=== PATIENT | male | born 1950 | race Caucasian/White ===

== ENCOUNTER → 2020-02-19 13:04 | Outpatient (CLI) | payer MEDICARE, SELFPAY ==
--- NOTE | ~2020-02-19 | MR_ITS ---
EXAMINATION: MR ankle RT wo con DATE: 02/19/2020 14:02 INDICATION: Right foot and ankle pain TECHNIQUE: Magnetic resonance imaging (MRI) of the right ankle was performed without intravenous cont rast. Sequences included sagittal, coronal, and axial proton-density weighted fast spin echo without and with fat saturation. COMPARISON: None. FINDINGS: Medial ankle ligaments: Deep and superficial deltoid ligaments as well as the spring ligament are normal. Lateral ankle ligaments: The anterior and posterior inferior tibiofibular ligaments are normal. The anterior talofibular, calc aneofibular and posterior talofibular ligaments are normal. Tendons: Achilles tendon is normal. Prominent fluid extending along the peroneal tendon sheath consistent with moderate tenosynovitis. The peroneus brevis brevis tendon is normal. There is mild thickening and in creased intrasubstance signal of the peroneus longus tendon consistent with mild tendinopathy without discrete tear. The tibialis anterior and extensor hallucis longus and extensor digitorum longus tend ons are normal. The tibialis posterior, flexor digitorum longus and flexor hallucis longus tendons ar e normal. Plantar fascia: Moderate-sized plantar calcaneal spur. There is mild thickening and mild increased signal at the prox imal plantar aponeurosis with mild edema in the underlying plantar fat pad consistent with mild acute on chronic plantar fasciitis. Bones/other: Bone alignment is normal. No fracture or pathologic marrow replacing process. Joint spaces appear nor mal. There is an erosion along the inferior margin of the peroneal tubercle along the lateral calcane us with prominent underlying marrow edema. There is thickening of the inferior peroneal retinaculum a nd mild edema in the immediately surrounding subcutaneous fat. Fluid: Physiologic amount fluid in the joint spaces. No abnormal fluid collections aside from the previous n oted peroneal tenosynovitis. IMPRESSION: 1. Cortical erosion with prominent underlying marrow edema centered at the inferior aspect of the per adame tubercle likely secondary to moderate peroneal tenosynovitis and mild tendinopathy of the peron eus longus tendon. 2. Mild acute on chronic plantar fasciitis. Reviewed, dictated and finalized at location B. IMPRESSION: 1. Cortical erosion with prominent underlying marrow edema centered at the infe rior aspect of the peroneal tubercle likely secondary to moderate peroneal teno synovitis and mild tendinopathy of the peroneus longus tendon. 2. Mild acute on chronic plantar fasciitis.
== END ==
PROVIDERS: Visit Provider Podiatrist Foot & Ankle Surgery
DX: M25.571 Pain in right ankle and joints of right foot (principal); M13.871 Other specified arthritis, right ankle and foot; M72.2 Plantar fascial fibromatosis
CPT/HCPCS: 73721

== ENCOUNTER 2020-05-16 11:20 | Emergency (ER) | payer MEDICARE, SELFPAY ==
--- NOTE | ~2020-05-16 | CT_ITS ---
EXAMINATION: CT abdomen pelvis wo con DATE: 05/16/2020 12:18 INDICATION: Right flank pain TECHNIQUE: Computed tomography (CT) of the abdomen and pelvis was performed without intravenous contr ast. The dose-length product (DLP) was 254.63 mGy-cm. Automated exposure control and iterative recons truction technique were employed. COMPARISON: None FINDINGS: The lung bases are clear. The heart size is normal. The liver, spleen, pancreas, gallbladde r, and adrenal glands are normal. There is a 3 mm stone near the right ureterovesicular junction whic h appears to be within the bladder. There is mild right hydroureteronephrosis. Nonobstructing stones of the right kidney measure up to 7 mm. The left kidney is unremarkable. No pathologically enlarged a bdominal or pelvic lymph nodes are identified. There is no free intraperitoneal gas or evidence of oli wel obstruction. Colonic diverticulosis is present without evidence of diverticulitis. The appendix i s normal. There are bilateral L5 pars defects with grade 1 anterolisthesis of L5 on S1. IMPRESSION: 1. Mild right hydroureteronephrosis with 3 mm stone in the bladder near the right ureterovesicular ju nction, likely recently passed. 2. Right nephrolithiasis. Reviewed, dictated and finalized at location A. ESTATE LOAN PROCESSOR IMPRESSION: 1. Mild right hydroureteronephrosis with 3 mm stone in the bladder near the rig ht ureterovesicular junction, likely recently passed. 2. Right nephrolithiasis.
[2020-05-16 11:27] VITALS: BP 157/91; PULSE 66; RESP 15; TEMP 36.7; O2SAT 100
--- NOTE | 2020-05-16 11:48 | ED.ABDPAIN ---
HPI - Abdominal Pain General Chief Complaint: Abdominal Pain Stated Complaint: RIGHT FLANK PAIN Time Seen by Provider: 05/16/20 11:39 History of Present Illness HPI narrative: 69 yo male w/ h/o kidney stone presents to the ED with flank pain. He reports that he first noticed some discomfort in the right low back yesterday. He thought that he strained a muscle in rehab. This morning the pain has been significantly worse. This was associated with an episode of nausea. He believes this feels similar to a kidney stone he had in the distant past. He also reports having to strain when urinating and possible incomplete emptying of his bladder. Related Data Home Medications Medication Instructions Recorded Confirmed allopurinol 05/16/20 alprazolam 05/16/20 atorvastatin 05/16/20 eszopiclone mg 05/16/20 losartan 05/16/20 omeprazole 05/16/20 testosterone cypionate mg 05/16/20 tramadol mg 05/16/20 05/16/20 Allergies Allergy/AdvReac Type Severity Reaction Status Date / Time No Known Allergies Allergy Verified 05/16/20 11:43 Review of Systems Review of Systems: All systems reviewed & are unremarkable except as noted in HPI and below Constitutional: Constitutional: Denies chills and Denies fever(s) Cardiovascular: Cardiovascular: Denies chest pain Respiratory: Respiratory: Denies dyspnea Gastrointestinal: Gastrointestinal: Reports nausea Genitourinary: Genitourinary: Denies hematuria, Reports dysuria and Reports urinary frequency Musculoskeletal: Musculoskeletal: Reports back pain Neurologic: Denies confusion, Denies dizziness and Denies weakness [facility] Past Medical History Medical History (Updated 05/16/20 @ 12:59 by Jorge Ellis MD) HTN (hypertension) Hyperuricemia Kidney stone Social History Social History (Updated 05/16/20 @ 12:30 by Jorge Ellis MD) Smoking status: Never smoker Gender identity (if verbalized by the patient): Male Exam Const: General: healthy appearing, no acute distress and alert Orientation/consciousness: patient oriented x3 HENMT: Head: normal to inspection Resp: Effort & Inspection: normal respiratory effort Auscultation: clear to auscultation bilaterally Cardio: Rate: regular rate Rhythm: regular rhythm GI: GI Palp: Yes Soft to palpation and No Tenderness to palpation present (GI) Skin: General skin exam: normal color Neuro: General: patient oriented x3, moves all extremities, no focal motor deficits and CN's II-XI intact bilaterally Speech: normal speech Extrem: General: normal to inspection Course Vital Signs Vital signs: Vital Signs Temperature 36.7 C 05/16/20 11:27 Pulse Rate 66 05/16/20 11:27 Respiratory Rate 15 05/16/20 11:27 Blood Pressure 157/91 H 05/16/20 11:27 Pulse Oximetry 100 05/16/20 11:27 Temperature 36.7 C 05/16/20 11:27 Pulse Rate 60 05/16/20 14:04 Respiratory Rate 16 05/16/20 14:04 Blood Pressure 158/86 H 05/16/20 14:04 Pulse Oximetry 100 05/16/20 14:04 MDM - Abdominal Pain Differential Diagnosis Differential diagnosis: Likely acute appendicitis, calculus of kidney, diverticulitis and small bowel obstruction Medical Records Attestation: I reviewed the patient's medical records. Lab Data Attestation: I reviewed the patient's lab results. Result diagrams: 05/16/20 11:47 05/16/20 11:47 Labs: Lab Results 05/16/20 05/16/20 05/16/20 Range/Units 11:47 11:47 11:47 WBC 7.4 (4.5-10.0) K/mm3 RBC 4.87 (4.6-6.20) M/mm3 Hgb 15.1 (14.0-18.0) g/dL Hct 45.8 (42.0-52.0) % MCV 94.0 (80-100) fl MCH 31.0 (26-34) pg MCHC 33.0 (32-36) g/dl RDW 13.6 (11.5-14.5) % Plt Count 164 (150-375) k/mm3 MPV 11.0 H (7.4-10.4) fl Immature Gran % (Auto) 0.5 (0-0.5) % Neut % (Auto) 66.2 (45.5-73.1) % Lymph % (Auto) 22.2 (18.3-44.2) % [place] % (Auto) 6.5 (2.6-8.5) % Eos % (Auto) 4.2 (0-4.4) % Bas
[2020-05-16 11:54] LABS: Basophils Percent Auto 0.4 % (0.2-1.2); Eosinophils Absolute Auto 0.3 K/mm3 (0-0.3); Eosinophils Percent Auto 4.2 % (0-4.4); Hematocrit 45.8 % (42.0-52.0); Hemoglobin 15.1 g/dL (14.0-18.0); Immature Granulocyte Absolute 0.04 K/mm3 (0.00-0.031); Immature Granulocyte Percent A 0.5 % (0-0.5); Lymphocytes Absolute Auto 1.65 K/mm3 (0.9-3.2); Lymphocytes Percent Auto 22.2 % (18.3-44.2); Monocytes Absolute Auto 0.5 K/mm3 (0.1-0.6); Monocytes Percent Auto 6.5 % (2.6-8.5); Neutrophils Absolute Auto 4.9 K/mm3 (1.3-6.7); Neutrophils Percent Auto 66.2 % (45.5-73.1); Platelet Count Result 164 k/mm3 (150-375); Red Blood Count 4.87 M/mm3 (4.6-6.20); Red Cell Distribution Width 13.6 % (11.5-14.5); White Blood Count 7.4 K/mm3 (4.5-10.0)
[2020-05-16 11:56] LABS: Add Urine Microscopic? NO; Appearance Urine Clear (Clear); Bilirubin Urine Negative (Negative); Blood Urine Negative (Negative); Color Urine Yellow (Yellow); Glucose Urine UA Negative (Negative); Ketones Urine Negative (Negative); Leukocyte Esterase Ur Negative LEU/UL (Negative); Nitrate Urine Negative (Negative); Protein Urine Negative (Negative); Specific Grav Ur 1.021 (1.001-1.035); Urobilinogen Urine Negative mg/dL (<2.0)
[2020-05-16 12:06] LABS: Alanine Aminotransferase 36 U/L (4-50); Albumin Level 4.4 g/dL (3.5-5.1); Alkaline Phosphatase 90 U/L (38-126); Anion Gap 8 mmol/L (8-16); Aspartate Amino Transferase 27 U/L (17-59); Bilirubin,Total 0.6 mg/dL (0.2-1.3); Blood Urea Nitrogen 19 mg/dL (9-20); Calcium 9.4 mg/dL (8.4-10.2); Carbon Dioxide 25 mmol/L (22-30); Chloride 105 mmol/L (98-107); Estimated CRCL calculation 52 ml/min; Estimated Glomerular Filt Rate 60; Glucose 176 mg/dL (75-110); Lipase 54 U/L (23-300); Potassium 4.2 mmol/L (3.4-5.0); Sodium 138 mmol/L (137-145)
[2020-05-16] MEDS: fentaNYL CITRATE INJ (*CRX) 100 MCG/2 ML VIAL 50 MCG IV PUSH (12:13)
[2020-05-16] MEDS: KETOROLAC 30 MG/ML VIAL (*BKC) IV PUSH (13:09)
[2020-05-16 14:04] VITALS: BP 158/86; PULSE 60; RESP 16; O2SAT 100
== END 2020-05-16 14:40 | disposition home or self-care (01) ==
PROVIDERS: Emergency Provider Emergency Medicine; PCP Internal Medicine
DX: N13.2 Hydronephrosis with renal and ureteral calculous obstruction (principal); I10 Essential (primary) hypertension; Z87.442 Personal history of urinary calculi
CPT/HCPCS: 36415; 74176; 80053; 81003; 83690; 85025; 96374; 96375; 99284; J1885; J3010

== ENCOUNTER → 2020-06-14 10:20 | Outpatient (CLI) | payer MEDICARE, SELFPAY ==
--- NOTE | ~2020-06-14 | US_ITS ---
EXAMINATION: US renal BI DATE: 06/14/2020 10:43 INDICATION: Nephrolithiasis TECHNIQUE: Multiple ultrasound grayscale images of the kidneys were obtained. COMPARISON: None. FINDINGS: The right kidney measures 8.9 x 5.1 x 5.6 although length appears underestimated and measures 11.6 cm in length on prior CT The left kidney measures 12.0 x 5.4 x 4.4 cm. There is a normal variant dromed marc hump at the interpolar region of the left kidney. The kidneys demonstrate normal echogenicity. Th ere is no hydronephrosis in either kidney. No shadowing renal stones identified. The bladder is deco mpressed which limits evaluation.. IMPRESSION: 1. Normal kidneys without hydronephrosis. Small stones previously seen in the right kidney on CT are not visualized by ultrasound which could be either due to their small size or interval passage. Reviewed, dictated and finalized at location A. RAPHIC INFORMATION SYSTEM SURVEYOR IMPRESSION: 1. Normal kidneys without hydronephrosis. Small stones previously seen in the right kidney on CT are not visualized by ultrasound which could be either due t o their small size or interval passage.
== END ==
PROVIDERS: PCP Internal Medicine
DX: N20.0 Calculus of kidney (principal)
CPT/HCPCS: 76775

== ENCOUNTER 2020-10-15 14:35 | Outpatient (CLI) | payer MEDICARE, SELFPAY ==
[2020-10-15 19:16] LABS: Prostate Specific Antigen 2.1 ng/mL (< OR = 4.0)
== END 2020-10-15 14:36 | disposition home or self-care (01) ==
PROVIDERS: PCP Internal Medicine; Visit Provider Internal Medicine
DX: Z12.5 Encounter for screening for malignant neoplasm of prostate (principal)
CPT/HCPCS: 36415; 84153; G0103

== ENCOUNTER → 2022-11-20 09:31 | Outpatient (CLI) | payer MEDICARE, SELFPAY ==
--- NOTE | ~2022-11-20 | XR_ITS ---
EXAMINATION: XR abdomen/kub 1V DATE: 11/20/2022 09:47 INDICATION: Personal history of urinary calculi. TECHNIQUE: A supine view of the abdomen on 2 radiographs was obtained. COMPARISON: CT abdomen and pelvis 05/16/2020 FINDINGS: There are no dilated loops of bowel. There is a 6 mm stone in right kidney. There are phleb oliths in the pelvis. IMPRESSION: 1. 6 mm stone in right kidney. Reviewed, dictated and finalized at location A.
== END ==
PROVIDERS: PCP Urology; Visit Provider Urology
DX: N20.0 Calculus of kidney (principal)
CPT/HCPCS: 74018

== ENCOUNTER 2022-12-20 09:19 | Outpatient (CLI) | payer MEDICARE, SELFPAY ==
--- NOTE | 2022-12-20 09:30 | ECG_ITS ---
Measurements Intervals [place] Rate: 75 P: 26 ID: [id number] QRS: -31 QRSD: 106 T: -10 QT: 371 QTc: 416 Interpretive Statements SINUS RHYTHM MARKED LEFT AXIS DEVIATION [QRS AXIS < -30] MODERATE VOLTAGE CRITERIA FOR LVH, CONSIDER NORMAL VARIANT [MEETS CRITERIA IN ONE OF: R(aVL), S(V1), R(V5), R(V5/V6)+S(V1)] ABNORMAL ECG NO PREVIOUS ECG AVAILABLE FOR COMPARISON Electronically Signed On 12-20-2022 12:13:19 CDT by Raudel Morataya M.D.
[2022-12-20 10:45] LABS: INR 1.2; Prothrombin Time 15.6 Seconds (11.1-14.7)
[2022-12-20 10:46] LABS: Partial Thromboplastin Time 44.1 SECONDS (22.3-36.8)
== END 2022-12-20 09:20 | disposition home or self-care (01) ==
LOC: ANHSURGERY 09:25
PROVIDERS: Visit Provider Urology
DX: Z01.818 Encounter for other preprocedural examination (principal); I10 Essential (primary) hypertension; N20.0 Calculus of kidney; R94.31 Abnormal electrocardiogram [ECG] [EKG]
CPT/HCPCS: 36415; 85610; 85730; 87086; 93005

== ENCOUNTER 2022-12-22 03:38 | Day surgery (SDC) | payer MEDICARE, SELFPAY ==
--- NOTE | 2022-12-15 08:35 | PC.NURSE ---
Report to the Outpatient Waiting Room, entrance under the green pavilion located off [facility], at time _0600 on date __12/22/22 . Planned Procedure Time: _0730 . Time changes happen often and if your time is changed the preop area will call you the afternoon before. - You and your visitor will be asked to self-screen and do not enter if you have any COVID symptoms. - A mask is optional within the hospital at this time. Patients may have clear liquids (water, carbonated beverages, clear teas, apple juice) until 3 hours prior to surgery with a maximum of 20 ounces. - No food from midnight until time of surgery - Infants may have breast milk until 4 hours before surgery, formula 6 hours prior to surgery. - Children will be allowed to drink immediately following surgery. If applicable, please bring a bottle or sippy cup to assist with drinking. Juice, water, soda, and popsicles are readily available. For infants on formula, please bring formula the day of surgery. Pacifiers are allowed. Take the following medications with a SIP of water the morning of surgery: ___NONE DO NOT STOP ANY OF YOUR OTHER PRESCRIPTION MEDICATIONS PRIOR TO SURGERY ?EXCEPT THE FOLLOWING Medications to discontinue per physician NONE Please no make-up, nail yoruba, hairspray, perfume, deodorant, or body powder the day of surgery. No jewelry (including any body piercings) or valuables the day of surgery, leave them at home. Please take a shower or bath the night before, or the morning of, surgery with an antibacterial soap. Wear comfortable, loose fitting clothing. Children are encouraged to wear pajamas. - Jewelry must be removed prior to entering the operating room. Rings and piercings that are not removed may be cut off. - The hospital will not accept responsibility for valuables. - Please leave all valuables, including medications, at home the day of surgery. If you are going home after surgery, a licensed log driver must drive you home. - NO public transportation without another adult if you receive anesthesia. - We recommend that an adult stay with you for 24 hours following discharge. - We also recommend that you do not drive, make important decision, drink alcoholic beverages, or take any drugs that were not prescribed by your health care provider for at least 24 hours after your discharge time. For Pediatric surgeries, we recommend two adults accompany the child home. Follow any additional instructions given to you from your surgeon. If you or anyone in your household have experienced Covid symptoms in the past week, please notify your surgeon or the nurse liaison at the phone number below for possible testing. Telephone instructions given to __PATIENT and asked if any additional questions and then verbalized understanding. Patient advised to call surgeon office or pre surgery nurse liaison [phone] if any additional questions.
[2022-12-15 08:47] VITALS: BMI 25.1
--- NOTE | 2022-12-21 09:58 | WPDANESEPPF ---
Anes - Initial Pre Proc Eval Procedure: Operation Date: 12/22/22 07:30 Proposed Procedures p Right Renal Extracorporeal Shock Wave Lithotripsy - Gabriel Calix MD Date/Time: 12/21/22 09:58 Surgeon: Gabriel Calix MD Pre Op Diagnosis: right renal stone Patient Data Age: 72 Gender: M Height: 1.78 m Weight: 79.4 kg Allergies Allergy/AdvReac Type Severity Reaction Status Date / Time No Known Allergies Allergy Verified 12/15/22 08:23 Home Medications Medication Instructions Recorded Confirmed Type allopurinol 300 mg tablet 300 mg PO DAILY 05/16/20 12/15/22 History alprazolam 1 mg tablet 1 mg PO PRN PRN Anxiety 05/16/20 12/15/22 History atorvastatin 10 mg tablet 10 mg PO DAILY 05/16/20 12/15/22 History losartan 50 mg tablet 50 mg PO DAILY 05/16/20 12/15/22 History omeprazole 20 mg capsule,delayed 40 mg PO DAILY 05/16/20 12/15/22 History release testosterone cypionate 200 mg/mL 200 mg IM MONTHLY 05/16/20 12/15/22 History intramuscular oil tramadol 50 mg tablet 50 mg PO PRN PRN Pain 05/16/20 12/15/22 History amitriptyline 10 mg tablet 20 mg PO HS HEADACHE 12/15/22 12/15/22 History calcium polycarbophil 625 mg 1,250 mg PO DAILY 12/15/22 12/15/22 History tablet (FiberCon) mirabegron 25 mg tablet,extended 25 mg PO DAILY 12/15/22 12/15/22 History release 24 hr (Myrbetriq) Patient hx anesthesia problems: none Family hx anesthesia problems: none Results Review: All pre-operative results and documents have been reviewed as part of the pre-operative evaluation. [facility] Past Medical History Medical History (Updated 12/21/22 @ 09:59 by Michael Lorenzo DO) GERD (gastroesophageal reflux disease) Gout HTN (hypertension) Hyperlipidemia Hyperuricemia Kidney stone JARAD (obstructive sleep apnea) CPAPg Social History Social History (Updated 05/16/20 @ 12:30 by Jorge Ellis MD) Smoking status: Never smoker Living arrangements: with family Gender identity (if verbalized by the patient): Male Spiritual care concerns: No Anes - Eval Final PreProcedure Day of Procedure 12/21/22 09:58 Patient weight: normal Heart: regular rate and rhythm Lungs: clear to auscultation and normal air movement Airway: Mallampati scale class II Neurological: alert and oriented Last oral intake: >/= 8 hours ASA classification: III Emergent: no Anesthetic plan: proceed Anesthesia type and monitoring: general GIVS and standard monitoring Results Review: All pre-operative results and documents have been reviewed as part of the pre-operative evaluation. Informed Consent: The patient's anesthetic plan and its attendant risks and benefits were discussed with the patient/family/POA. Questions were solicited and answers provided to the satisfaction of the patient/family/POA.
--- NOTE | ~2022-12-22 | XR_ITS ---
Supine and upright views of the abdomen Clinical history: Lithotripsy COMPARISON: 11/20/2022 Findings: Bowel gas pattern is nonspecific. No evidence for obstruction or free air. Stable right kenneth al stone present. Osseous structures are intact. Impression: Stable right renal stone. Reviewed, dictated and finalized at [facility]. Impression: Stable right renal stone.
[2022-12-22] MEDS: LACTATED RINGERS 1,000 ML 30 ML IV CONT (07:00)
[2022-12-22 07:02] LABS: Prothrombin Time 13.1 Seconds (11.1-14.7)
--- NOTE | 2022-12-22 07:20 | WPDHPUPDATE1 ---
History and Physical Update Update Date/Time: 12/22/22 07:20 History and Physical has been reviewed, including an updated exam of the patient. There are NO changes in the patient's condition. Risks, benefits, and alternatives have been discussed and questions answered. Patient agrees to proceed with procedure. Proceed with eswl right renal calculus
[2022-12-22 07:26] VITALS: BP 132/81; PULSE 90; RESP 14; TEMP 36.6; O2SAT 95
[2022-12-22] MEDS: ceFAZolin 2 GM/D5W 50 ML 2 GM/50 ML BAG IVPB (07:30)
--- NOTE | 2022-12-22 08:09 | W.PM.PROC2 ---
Procedure Note - Detailed Date of Procedure 12/22/22 Pre-op Diagnosis right renal stone Post-op Diagnosis Same Procedure Performed LITHOTRIPSY OF RIGHT RENAL CALCULUS Surgeon Gabriel Calix MD Anesthesia General Description of Procedure Patient is taken to the operative suite and correctly identified. Once anesthesia was obtained the stone was localized in both planes. Two thousand five hundred shocks were given to the stone. There appeared to be dispersion of the stone. Patient tolerated procedure well without complications and was taken recovery stable condition. This completes dictation please send a copy of this op note to my office Estimated Blood Loss 0 Drains No Packing No Pathology None sent Complications No immediate complications Condition Stable
[2022-12-22 08:21] VITALS: BP 134/86; PULSE 71; RESP 15; TEMP 36.1; O2SAT 99
[2022-12-22 08:35] VITALS: BP 131/71; PULSE 69; RESP 16; O2SAT 95
[2022-12-22 08:50] VITALS: BP 142/84; PULSE 59; RESP 14; O2SAT 96
[2022-12-22 08:55] VITALS: BP 145/86; PULSE 65; RESP 14
[2022-12-22 09:25] VITALS: BP 131/78; PULSE 60; RESP 14
== END 2022-12-22 09:45 | disposition home or self-care (01) ==
PROVIDERS: Visit Provider Urology
PROC: (CPT 50590; principal; 2022-12-22 07:30)
DX: N20.0 Calculus of kidney (principal); R31.0 Gross hematuria; I10 Essential (primary) hypertension; E78.5 Hyperlipidemia, unspecified; K21.9 Gastro-esophageal reflux disease without esophagitis; G47.33 Obstructive sleep apnea (adult) (pediatric); M10.9 Gout, unspecified
CPT/HCPCS: 50590; 36415; 74018; 85610; 85730; J0690; J3010; J7120

== ENCOUNTER 2023-01-04 10:25 | Outpatient (CLI) | payer MEDICARE, SELFPAY ==
--- NOTE | ~2023-01-04 | XR_ITS ---
XR abdomen/kub 1V 01/04/2023 10:44 INDICATION: Lithotripsy. TECHNIQUE: KUB COMPARISON: 12/22/2022 FINDINGS: Bowel gas pattern is normal. There is no evidence of free air, mass, organomegaly, ascites or obstruction. There are clustered stones in the right kidney which are obscured by bowel content. The bones appear intact. There are pelvic phleboliths. IMPRESSION: 1: Right nephrolithiasis. Reviewed, dictated and finalized at location L. IMPRESSION: 1: Right nephrolithiasis.
== END 2023-01-04 10:26 | disposition home or self-care (01) ==
LOC: ANHIMG 10:28
PROVIDERS: Visit Provider Urology
DX: N20.0 Calculus of kidney (principal)
CPT/HCPCS: 74018

== ENCOUNTER 2023-01-18 10:55 | Outpatient (CLI) | payer MEDICARE, SELFPAY ==
--- NOTE | ~2023-01-18 | XR_ITS ---
XR abdomen/kub 1V 01/18/2023 11:16 INDICATION: Nephrolithiasis TECHNIQUE: KUB COMPARISON: 01/04/2023 FINDINGS: Bowel gas pattern is normal. There is no evidence of free air, mass, organomegaly, ascites or obstruction. No abnormal calculi are seen. The bones appear intact. There are multiple pelvic p hleboliths. IMPRESSION: 1: No acute abdominal abnormality identified. Reviewed, dictated and finalized at location L.
== END 2023-01-18 10:56 | disposition home or self-care (01) ==
PROVIDERS: Visit Provider Urology
DX: N20.0 Calculus of kidney (principal)
CPT/HCPCS: 74018

== ENCOUNTER 2023-04-04 09:40 | Emergency (ER) | payer MEDICARE, SELFPAY ==
[2023-04-04 09:53] VITALS: BP 121/73; PULSE 95; RESP 16; TEMP 37.7; O2SAT 100
--- NOTE | 2023-04-04 10:22 | ED.URI ---
HPI - URI/Sore Throat General Chief Complaint: Upper Respiratory Infection Stated Complaint: COUGH/HEADACHE/BODY ACHES/SORE THROAT Time Seen by Provider: 04/04/23 10:00 Source: patient Mode of arrival: ambulatory Limitations: no limitations History of Present Illness HPI Narrative: Gabe is a 72-year-old male patient presenting to the clinic today with complaints of cough, headache, body aches, sore throat x4 days. Has had slight fever. No known exposure to anyone with COVID, flu, or strep. MD elicited complaint: cough, sore throat, nasal congestion and other (Headache) Related Data Home Medications Medication Instructions Recorded Confirmed allopurinol 300 mg tablet 300 mg PO DAILY 05/16/20 04/04/23 alprazolam 1 mg tablet 1 mg PO PRN PRN Anxiety 05/16/20 04/04/23 atorvastatin 10 mg tablet 10 mg PO DAILY 05/16/20 04/04/23 losartan 50 mg tablet 50 mg PO DAILY 05/16/20 04/04/23 omeprazole 20 mg capsule,delayed 40 mg PO DAILY 05/16/20 04/04/23 release testosterone cypionate 200 mg/mL 200 mg IM MONTHLY 05/16/20 04/04/23 intramuscular oil tramadol 50 mg tablet 50 mg PO PRN PRN Pain 05/16/20 04/04/23 amitriptyline 10 mg tablet 20 mg PO HS HEADACHE 12/15/22 04/04/23 calcium polycarbophil 625 mg 1,250 mg PO DAILY 12/15/22 04/04/23 tablet (FiberCon) mirabegron 25 mg tablet,extended 25 mg PO DAILY 12/15/22 04/04/23 release 24 hr (Myrbetriq) Allergies Allergy/AdvReac Type Severity Reaction Status Date / Time No Known Allergies Allergy Verified 04/04/23 10:19 Review of Systems Review of Systems: Pertinent positives per HPI. Patient denies any rash, visual changes, dizziness, shortness of breath, chest pain, palpitations, nausea, vomiting, diarrhea, constipation, abdominal pain, or any urinary issues. [facility] Past Medical History Medical History (Updated 04/04/23 @ 10:47 by Denilson Eid APRN) GERD (gastroesophageal reflux disease) Gout HTN (hypertension) Hyperlipidemia Hyperuricemia Kidney stone JARAD (obstructive sleep apnea) CPAPg Social History Social History (Updated 05/16/20 @ 12:30 by Jorge Ellis MD) Smoking status: Never smoker Living arrangements: with family Gender identity (if verbalized by the patient): Male Spiritual care concerns: No Comments At the time of my signature, I reviewed and agree with the nursing past medical, surgical, social, and family history. There is no relevant family history pertinent to the patient complaint. Exam Narrative: General: Well-developed, well nourished, in no apparent distress Head: Normocephalic, atraumatic Eyes: Pupils equally round and reactive to light bilaterally, EOM intact, sclera and conjunctive clear, no discharge, lids normal Ears: TMs intact and clear, ear canals clear, no drainage, grossly hearing normal. Nose: Nares patent, no discharge, no inflammation, no sinus tenderness. Mouth: Oral pharynx without lesions or masses, good dentition, MMM. Neck: Supple, trachea midline, no enlargement of anterior or posterior cervical nodes, no thyroid masses or goiter palpable. Cardio: Regular rate and rhythm, s1 and s2 normal, no murmur appreciated. Resp: Clear to auscultation bilaterally, no rhonchi, rales, wheezing or rubs Course Course Emergency Course: Portions of this record may have been created with voice recognition software. Level of Care: Express Care Visit Vital Signs Vital signs: Vital Signs Temperature 37.7 C H 04/04/23 09:53 Pulse Rate 95 04/04/23 09:53 Respiratory Rate 16 04/04/23 09:53 Blood Pressure 121/73 04/04/23 09:53 Pulse Oximetry 100 04/04/23 09:53 Temperature 37.7 C H 04/04/23 09:53 Pulse Rate 95 04/04/23 09:53 Respiratory Rate 16 04/04/23 09:53 Blood Pressure 121/73 04/04/23 09:53 Pulse Oximetry 100 04/04/23 09:53 Vital signs reviewed MDM - URI/Sore Throat MDM Narrative Medical decision making narrative: At the time of visit patient is
== END 2023-04-04 10:30 | disposition home or self-care (01) ==
PROVIDERS: Emergency Provider Nurse Practitioner Family
DX: J10.1 Influenza due to other identified influenza virus with other respiratory manifestations (principal); R05.1 Acute cough; K21.9 Gastro-esophageal reflux disease without esophagitis; M10.9 Gout, unspecified; I10 Essential (primary) hypertension; E78.5 Hyperlipidemia, unspecified; G47.33 Obstructive sleep apnea (adult) (pediatric)
CPT/HCPCS: 87804; 99213; G0463

== ENCOUNTER 2023-04-09 09:01 | Emergency (ER) | payer MEDICARE, SELFPAY ==
[2023-04-09 09:12] VITALS: BP 133/83; PULSE 95; RESP 16; TEMP 37.1; O2SAT 96
[2023-04-09 09:13] VITALS: BP 133/83; PULSE 95; RESP 16; TEMP 37.1; O2SAT 96
--- NOTE | 2023-04-09 09:21 | ED.URI ---
HPI - URI/Sore Throat General Chief Complaint: Upper Respiratory Infection Stated Complaint: Flu symptoms Time Seen by Provider: 04/09/23 09:24 Source: patient, RN notes reviewed and old records reviewed Mode of arrival: ambulatory Limitations: no limitations History of Present Illness HPI Narrative: 72-year-old male presents to [facility] with complaints of testing positive for Influenza A on the 02 of April with complaints of coughing productively and body aches continued. Patient reports no shortness of breath or any wheezing noted. Patient reports that he has been taking Mucinex, Claritin,Flonase, Ibuprofen, and Robitussin for his symptoms. Patient denies any nausea,vomiting or diarrhea, denies any sore throat or any ear pain, respiration even and nonlabored with no tachypnea noted, no retractions, SAO2 96% on room air.. MD elicited complaint: cough and other (body aches continue.) Pertinent past history: other (diagnosed with Influenza 1 week ago.) Onset (ago): week(s) (1) Consistency: constant Severity: mild Able to tolerate fluids by mouth: Yes Treatments prior to arrival: ibuprofen and other (Robitussin,Claritin,Flonase Mucinex) Related Data Home Medications Medication Instructions Recorded Confirmed allopurinol 300 mg tablet 300 mg PO DAILY 05/16/20 04/09/23 alprazolam 1 mg tablet 1 mg PO PRN PRN Anxiety 05/16/20 04/09/23 atorvastatin 10 mg tablet 10 mg PO DAILY 05/16/20 04/09/23 losartan 50 mg tablet 50 mg PO DAILY 05/16/20 04/09/23 omeprazole 20 mg capsule,delayed 40 mg PO DAILY 05/16/20 04/04/23 release testosterone cypionate 200 mg/mL 200 mg IM MONTHLY 05/16/20 04/04/23 intramuscular oil tramadol 50 mg tablet 50 mg PO PRN PRN Pain 05/16/20 04/04/23 amitriptyline 10 mg tablet 20 mg PO HS HEADACHE 12/15/22 04/09/23 calcium polycarbophil 625 mg 1,250 mg PO DAILY 12/15/22 04/09/23 tablet (FiberCon) mirabegron 25 mg tablet,extended 25 mg PO DAILY 12/15/22 04/09/23 release 24 hr (Myrbetriq) Allergies Allergy/AdvReac Type Severity Reaction Status Date / Time No Known Allergies Allergy Verified 04/09/23 09:13 Review of Systems Review of Systems: CONSTITUTIONAL:Reports malaise,no present chills, sweats, or fever. EYES: Denies visual changes, redness, or discharge. ENT: Reports rhinorrhea, congestion,no sinus pain, otalgia and sore throat. CARDIOVASCULAR: Denies chest pain, palpitations, or edema. RESPIRATORY: Reports cough.? Denies dyspnea. GASTROINTESTINAL: Denies abdominal pain, nausea, vomiting, diarrhea SKIN: Denies rash or itching. MUSCULOSKELETAL:Reports myalgia. NEUROLOGIC: Denies headache. All systems reviewed & are unremarkable except as noted in HPI and below PMFSH Past Medical History Medical History (Updated 04/10/23 @ 07:03 by Leonor Wood NP) GERD (gastroesophageal reflux disease) Gout HTN (hypertension) Hyperlipidemia Hyperuricemia Kidney stone JARAD (obstructive sleep apnea) CPAPg Surgical History Surgical History (Updated 04/10/23 @ 07:03 by Leonor Wood NP) H/O cervical spine surgery H/O repair of left rotator cuff H/O repair of right rotator cuff H/O thumb surgery left thumb fusion Social History Social History Smoking status: Never smoker Living arrangements: with family Gender identity (if verbalized by the patient): Male Spiritual care concerns: No Comments At time of signature, agree with nursing past medical, surgical, social and family history. There is no relevant family history pertinent to the presenting complaint Exam Narrative: GENERAL: Well-appearing, well-nourished, and in no acute distress. HEAD: Normocephalic EYES: PERRLA, conjunctivae clear ENT: Nares clear, turbinates edematous and erythematous, clear discharge. Mucous membranes moist. TM pearly duque with dull light reflex bilaterally; no tragal tenderness. Oropharynx erythematous without
== END 2023-04-09 09:53 | disposition home or self-care (01) ==
PROVIDERS: Emergency Provider Registered Nurse
DX: R05.1 Acute cough (principal); I10 Essential (primary) hypertension; E78.5 Hyperlipidemia, unspecified; Z79.899 Other long term (current) drug therapy; Z79.891 Long term (current) use of opiate analgesic
CPT/HCPCS: 99213; G0463

== ENCOUNTER 2023-07-29 10:17 | Emergency (ER) | payer MEDICARE, SELFPAY ==
--- NOTE | 2023-07-29 10:23 | ED.URI ---
HPI - URI/Sore Throat General Chief Complaint: Upper Respiratory Infection Stated Complaint: COUGH/CHILLS/COLD/UNSTEADY/BODY ACHES Time Seen by Provider: 07/29/23 10:25 Source: patient, RN notes reviewed and old records reviewed Mode of arrival: ambulatory Limitations: no limitations History of Present Illness HPI Narrative: 72-year-old male presents to the [facility] with complaints of coughing congestion that started . Had tried [id number] products with minimal relief. Patient reports symptoms got worse yesterday, felt fevers, decreased appetite. Woke up this morning at 3:00 a.m. sweaty and chilled. Patient reports an unsteady gait, feels like he has equilibrium is off. Onset (ago): day(s) (3) Consistency: constant and progressively worsening Treatments prior to arrival: cold medicine Related Data Home Medications Medication Instructions Recorded Confirmed allopurinol 300 mg tablet 300 mg PO DAILY 05/16/20 04/09/23 alprazolam 1 mg tablet 1 mg PO PRN PRN Anxiety 05/16/20 04/09/23 atorvastatin 10 mg tablet 10 mg PO DAILY 05/16/20 04/09/23 losartan 50 mg tablet 50 mg PO DAILY 05/16/20 04/09/23 omeprazole 20 mg capsule,delayed 40 mg PO DAILY 05/16/20 04/04/23 release testosterone cypionate 200 mg/mL 200 mg IM MONTHLY 05/16/20 04/04/23 intramuscular oil tramadol 50 mg tablet 50 mg PO PRN PRN Pain 05/16/20 04/04/23 amitriptyline 10 mg tablet 20 mg PO HS HEADACHE 12/15/22 04/09/23 calcium polycarbophil 625 mg 1,250 mg PO DAILY 12/15/22 04/09/23 tablet (FiberCon) mirabegron 25 mg tablet,extended 25 mg PO DAILY 12/15/22 04/09/23 release 24 hr (Myrbetriq) Allergies Allergy/AdvReac Type Severity Reaction Status Date / Time No Known Allergies Allergy Verified 07/29/23 12:20 Review of Systems Review of Systems: All systems reviewed & are unremarkable except as noted in HPI and below Constitutional: Constitutional: Reports as per HPI, Reports body ache(s), Reports chills, Reports fatigue, Reports fever(s), Reports lethargy and Reports poor appetite Eyes: Eyes: Reports no additional eye complaints ENT: Reports system reviewed and no additional complaints, except as documented Cardiovascular: Cardiovascular: Reports no additional cardiovascular complaints, Denies chest pain and Denies dyspnea Respiratory: Respiratory: Reports as per HPI, Denies chest congestion, Reports cough and Reports dyspnea Gastrointestinal: Gastrointestinal: Reports no additional gastrointestinal complaints, Denies abdominal pain, Denies nausea and Denies vomiting Musculoskeletal: Musculoskeletal: Reports no additional musculoskeletal complaints Integumentary/Breasts: Skin/Breast: Reports system reviewed and no additional complaints, except as docu Neurologic: Reports system reviewed and no additional complaints, except as documented Psychiatric: Psychiatric: Reports no additional psychiatric complaints Allergic/Immunologic: Allergic/Immunologic: Reports no additional allergic/immunologic complaints PMFSH Past Medical History Medical History GERD (gastroesophageal reflux disease) Gout HTN (hypertension) Hyperlipidemia Hyperuricemia Kidney stone JARAD (obstructive sleep apnea) CPAPg Surgical History Surgical History H/O cervical spine surgery H/O repair of left rotator cuff H/O repair of right rotator cuff H/O thumb surgery left thumb fusion Social History Social History Smoking status: Never smoker Living arrangements: with family Gender identity (if verbalized by the patient): Male Spiritual care concerns: No Comments At the time of my signature, I reviewed and agree with the nursing past medical, surgical, social, and family history. There is no relevant family history pertinent to the patient complaint. Exam Const: General: coope
[2023-07-29 10:30] VITALS: BP 89/71; PULSE 127; RESP 16; TEMP 37.2; O2SAT 99
--- NOTE | 2023-07-29 10:34 | ECG_ITS ---
SEE SCANNED COPY FOR CONFIRMED REPORT MTDD
[2023-07-29 10:35] VITALS: BP 124/97; BP 93/62; PULSE 118; PULSE 133
[2023-07-29 12:06] VITALS: BP 123/67; PULSE 122
== END 2023-07-29 10:53 | disposition short-term general hospital (02) ==
PROVIDERS: Emergency Provider Nurse Practitioner
DX: U07.1 COVID-19 (principal); K21.9 Gastro-esophageal reflux disease without esophagitis; M10.9 Gout, unspecified; I10 Essential (primary) hypertension; E78.5 Hyperlipidemia, unspecified; G47.33 Obstructive sleep apnea (adult) (pediatric)
CPT/HCPCS: 87426; 87804; 93005; 99215; G0463

== ENCOUNTER 2023-07-29 11:14 | Emergency (ER) | payer MEDICARE, SELFPAY ==
--- NOTE | ~2023-07-29 | XR_ITS ---
XR chest 1V portable DATE: 07/29/2023 12:32 INDICATION: Covid-positive TECHNIQUE: Portable upright AP chest on July 29, 2023 and 1222 hours COMPARISON: None FINDINGS: There is patchy infiltrate on the left, most prominent in the left mid-upper lung zone. Rig ht lung appears clear. No pleural effusion or pulmonary vascular congestion or pneumothorax. Normal heart size. Mild aortic calcification and tortuosity. IMPRESSION: Patchy left-sided infiltrate, primarily in the mid to upper lung zone, suggesting pneumon ia Reviewed, dictated and finalized at location A. IMPRESSION: Patchy left-sided infiltrate, primarily in the mid to upper lung zo ne, suggesting pneumonia
[2023-07-29 12:25] VITALS: O2SAT 95
[2023-07-29] MEDS: ACETAMINOPHEN 500 MG TABLET 1000 MG PO (12:27)
[2023-07-29] MEDS: SODIUM CHLORIDE 0.9% IV 1,000 ML 999 ML IV CONT (12:28)
[2023-07-29 12:37] LABS: Basophils Percent Auto 0.2 % (0.2-1.2); Eosinophils Absolute Auto 0.1 K/mm3 (0-0.3); Eosinophils Percent Auto 0.4 % (0-4.4); Hematocrit 43.6 % (42.0-52.0); Hemoglobin 14.6 g/dL (14.0-18.0); Immature Granulocyte Absolute 0.06 K/mm3 (0.00-0.031); Immature Granulocyte Percent A 0.4 % (0-0.5); Lymphocytes Absolute Auto 0.59 K/mm3 (0.9-3.2); Lymphocytes Percent Auto 4.1 % (18.3-44.2); Mean Corpuscular HGB Conc 33.5 g/dl (32-36); Mean Corpuscular Hemoglobin 30.7 pg (26-34); Mean Corpuscular Volume 91.8 fl (80-100); Mean Platelet Volume 12.2 fl (7.4-10.4); Monocytes Absolute Auto 0.9 K/mm3 (0.1-0.6); Monocytes Percent Auto 6.5 % (2.6-8.5); Neutrophils Absolute Auto 12.7 K/mm3 (1.3-6.7); Neutrophils Percent Auto 88.4 % (45.5-73.1); Platelet Count Result 149 k/mm3 (150-375); Prothrombin Time 13.1 Seconds (11.1-14.7); Red Blood Count 4.75 M/mm3 (4.6-6.20); Red Cell Distribution Width 13.3 % (11.5-14.5); White Blood Count 14.4 K/mm3 (4.5-10.0)
[2023-07-29 12:38] LABS: Partial Thromboplastin Time 26.7 Seconds (22.3-36.8)
[2023-07-29 12:39] LABS: Alanine Aminotransferase 26 U/L (6-50); Albumin Level 4.3 g/dL (3.5-5.1); Alkaline Phosphatase 89 U/L (38-126); Anion Gap 10 mmol/L (4-12); Aspartate Amino Transferase 25 U/L (17-59); Bilirubin,Total 0.7 mg/dL (0.2-1.3); Blood Urea Nitrogen 16 mg/dL (9-20); Calcium 9.5 mg/dL (8.4-10.2); Carbon Dioxide 20 mmol/L (22-30); Chloride 101 mmol/L (98-107); Estimated CRCL calculation 59 ml/min; Estimated Glomerular Filt Rate > 60; Glucose 234 mg/dL (65-110); Magnesium 1.9 mg/dL (1.6-2.3); Potassium 4.5 mmol/L (3.4-5.0); Sodium 131 mmol/L (137-145)
[2023-07-29 12:44] LABS: D Dimer 0.31 ug/mL (<0.48)
--- NOTE | 2023-07-29 13:49 | ED.GENADULT ---
HPI - General Adult General Chief complaint: Weakness Stated complaint: COVID Positive History of Present Illness HPI narrative: [age] old male presenting emergency department for evaluation of worsening cough and shortness of breath. Patient had onset of headache and dizziness today so he presented to the urgent care. They tested him for COVID and he was found to be positive. Due to patient having headache and low blood pressures he was referred to the emergency department for further evaluation. Related Data Home Medications Medication Instructions Recorded Confirmed allopurinol 300 mg tablet 300 mg PO DAILY 05/16/20 04/09/23 alprazolam 1 mg tablet 1 mg PO PRN PRN Anxiety 05/16/20 04/09/23 atorvastatin 10 mg tablet 10 mg PO DAILY 05/16/20 04/09/23 losartan 50 mg tablet 50 mg PO DAILY 05/16/20 04/09/23 omeprazole 20 mg capsule,delayed 40 mg PO DAILY 05/16/20 04/04/23 release testosterone cypionate 200 mg/mL 200 mg IM MONTHLY 05/16/20 04/04/23 intramuscular oil tramadol 50 mg tablet 50 mg PO PRN PRN Pain 05/16/20 04/04/23 amitriptyline 10 mg tablet 20 mg PO HS HEADACHE 12/15/22 04/09/23 calcium polycarbophil 625 mg 1,250 mg PO DAILY 12/15/22 04/09/23 tablet (FiberCon) mirabegron 25 mg tablet,extended 25 mg PO DAILY 12/15/22 04/09/23 release 24 hr (Myrbetriq) Allergies Allergy/AdvReac Type Severity Reaction Status Date / Time No Known Allergies Allergy Verified 07/29/23 12:20 Review of Systems Review of Systems: All systems reviewed & are unremarkable except as noted in HPI and below PMFSH Past Medical History Medical History GERD (gastroesophageal reflux disease) Gout HTN (hypertension) Hyperlipidemia Hyperuricemia Kidney stone JARAD (obstructive sleep apnea) CPAPg Surgical History Surgical History H/O cervical spine surgery H/O repair of left rotator cuff H/O repair of right rotator cuff H/O thumb surgery left thumb fusion Social History Social History Smoking status: Never smoker Living arrangements: with family Gender identity (if verbalized by the patient): Male Spiritual care concerns: No Exam Narrative: APPEARANCE: Well appearing, no pain, no distress, well-nourished. HEAD: normocephalic, atraumatic. EYES: PERRLA/EOMI, conjunctivae clear. NOSE: Normal no drainage EARS:TMS clear with good light reflex. THROAT: Pharynx clear, no exudate. NECK: Supple. No adenopathy, no masses. RESPIRATORY: Airway patent, respirations nonlabored. Clear to auscultation bilaterally, no rales, rhonchi, wheezing. CARDIOVASCULAR: Regular rate and rhythm without murmurs rubs or gallops. ABDOMINAL: Soft, nontender, nondistended, normal bowel sounds MUSCULOSKELETAL: Moves all extremities. Strength/ROM intact, No edema, No calf tenderness. NEURO: Alert. Cranial nerves II through XII intact. Grossly intact SKIN: Warm, dry. Normal Color Course Course Emergency Course: Patient felt improved treatment he was discharged to home with instructions for outpatient follow-up. Patient was started on antibiotics for possible bacterial pneumonia Vital Signs Vital signs: Vital Signs Pulse Oximetry 95 07/29/23 12:25 Oxygen Delivery Room Air 07/29/23 12:25 Temperature 97.9 F 07/29/23 16:04 Pulse Rate 88 07/29/23 16:04 Respiratory Rate 15 07/29/23 16:04 Blood Pressure 110/71 07/29/23 16:04 Pulse Oximetry 98 07/29/23 16:04 Oxygen Delivery Room Air 07/29/23 12:25 Medical Decision Making [facility] Narrative Medical decision making narrative: [age] old male presenting emergency department for evaluation COVID with headache and hypertension. Patient is afebrile but does have a leukocytosis of 14.4 and hemoglobin of 14.6, patient's D-dimer was not elevated. Patient has no acute abnormalities on his
[2023-07-29 14:12] VITALS: BP 100/71; BP 101/67; BP 97/65; PULSE 86; PULSE 92; PULSE 96
[2023-07-29 14:16] VITALS: BP 102/71; PULSE 88; RESP 15; O2SAT 96
[2023-07-29] MEDS: AZITHROMYCIN 500 MG/NS 250 ML 500 MG/250 ML BAG 250 MG IVPB (14:51)
[2023-07-29 14:53] VITALS: BP 119/73; PULSE 88; RESP 14; O2SAT 97
[2023-07-29 16:04] VITALS: BP 110/71; PULSE 88; RESP 15; TEMP 36.6; O2SAT 98
== END 2023-07-29 16:07 | disposition home or self-care (01) ==
PROVIDERS: Emergency Provider Emergency Medicine
DX: U07.1 COVID-19 (principal); J18.9 Pneumonia, unspecified organism; I10 Essential (primary) hypertension; E78.5 Hyperlipidemia, unspecified; G47.33 Obstructive sleep apnea (adult) (pediatric); M10.9 Gout, unspecified; K21.9 Gastro-esophageal reflux disease without esophagitis; Z87.442 Personal history of urinary calculi
CPT/HCPCS: 36415; 71045; 80053; 83735; 85025; 85380; 85610; 85730; 87426; 87804; 96361; 96365; 96375; 99284; A9270; J0456; J0696; J7030

== ENCOUNTER 2024-07-20 11:45 | Emergency (ER) | payer MEDICARE, SELFPAY ==
--- NOTE | 2024-07-20 11:46 | ED_ITS ---
HPI - URI/Sore Throat General Chief Complaint: Upper Respiratory Infection Stated Complaint: Upper Respiratory Symptoms Time Seen by Provider: 07/20/24 11:46 Source: patient Mode of arrival: ambulatory Limitations: no limitations History of Present Illness HPI Narrative: Sesar is a 73-year-old male patient presenting to the clinic today with complaints of runny nose, cough, and sinus congestion times 2 days. He denies any fevers, chills, body aches. Is coughing up clear phlegm Related Data Home Medications ?Medication ?Instructions ?Recorded ?Confirmed ?Last Taken ?Type allopurinol 300 mg tablet 300 mg PO DAILY 05/16/20 04/09/23 12/22/22 History alprazolam 1 mg tablet 1 mg PO PRN PRN Anxiety 05/16/20 04/09/23 Unknown History atorvastatin 10 mg tablet 10 mg PO DAILY 05/16/20 04/09/23 12/22/22 History losartan 50 mg tablet 50 mg PO DAILY 05/16/20 04/09/23 12/22/22 History omeprazole 20 mg capsule,delayed 40 mg PO DAILY 05/16/20 04/04/23 12/22/22 History release testosterone cypionate 200 mg/mL 200 mg IM MONTHLY 05/16/20 04/04/23 Unknown History intramuscular oil tramadol 50 mg tablet 50 mg PO PRN PRN Pain 05/16/20 04/04/23 Unknown History calcium polycarbophil 625 mg 1,250 mg PO DAILY 12/15/22 04/09/23 Unknown History tablet (FiberCon) mirabegron 25 mg tablet,extended 25 mg PO DAILY 12/15/22 04/09/23 Unknown History release 24 hr (Myrbetriq) Allergies Allergy/AdvReac Type Severity Reaction Status Date / Time No Known Allergies Allergy Verified 07/20/24 11:56 Review of Systems Review of Systems: Pertinent positives per HPI. Patient denies any fever, chills, rash, headache, visual changes, dizziness, cough, shortness of breath, chest pain, palpitations, nausea, vomiting, diarrhea, constipation, abdominal pain, or any urinary issues. [facility] Past Medical History Medical History Gout GERD (gastroesophageal reflux disease) JARAD (obstructive sleep apnea) CPAPg Hyperlipidemia Hyperuricemia Kidney stone HTN (hypertension) Surgical History Surgical History H/O repair of left rotator cuff H/O repair of right rotator cuff H/O cervical spine surgery H/O thumb surgery left thumb fusion Social History Social History Smoking status: Never smoker Living arrangements: with family Gender identity (if verbalized by the patient): Male Spiritual care concerns: No Comments At the time of my signature, I reviewed and agree with the nursing past medical, surgical, social, and family history. There is no relevant family history pertinent to the patient complaint. Exam Narrative: General: Well-developed, well nourished, in no apparent distress Head: Normocephalic, atraumatic Eyes: Pupils equally round and reactive to light bilaterally, EOM intact, sclera and conjunctive clear, no discharge, lids normal Ears: TMs intact and clear, ear canals clear, no drainage, grossly hearing normal. Nose: Nares patent, clear nasal discharge, mild inflammation, no sinus tenderness. Mouth: Oral pharynx without lesions or masses, good dentition, MMM. Postnasal drip Neck: Supple, trachea midline, no enlargement of anterior or posterior cervical nodes, no thyroid masses or goiter palpable. Cardio: Regular rate and rhythm, s1 and s2 normal, no murmur appreciated. Resp: Clear to auscultation bilaterally, no rhonchi, rales, wheezing or rubs Course Course Emergency Course: Portions of this record may have been created with voice recognition software. Level of Care: Express Care Visit Vital Signs Vital signs: Vital signs reviewed MDM - URI/Sore Throat MDM Narrative Medical decision making narrative: At the time of visit patient is resting comfortably on the exam table. Patient appears to be nontoxic. Labs: COVID and influenza testing was performed and negative in the clinic today. Plan: I suspect patient has URI. Prescription for prednisone was sent to the pharmacy. Supportive measures were discussed with the patient and they voiced understanding discharge instructions and agrees to treatment plan. Return precautions reviewed Differential Diagnosis Differential diagnosis: Likely upper respiratory infection, otitis media, sinusitis, viral infection, bronchitis, influenza, pharyngitis and other (COVID) Discharge Plan Discharge Clinical Impression: Upper respiratory infection Qualifiers: URI type: unspecified URI Qualified Code(s): J06.9 - Acute upper respiratory infection, unspecified Patient Disposition: Home, Self-Care Condition: Stable Instructions: Antibiotic Form, Cold Symptoms (ED) Additional Instructions: COVID and influenza testing was negative in the clinic today. Take prescription medications only as prescribed-prednisone Increase fluids and stay well hydrated Tylenol/motrin for pain/fever Flonase and OTC antihistamines as directed Vicks vapor rub to open sinuses Sinus rinses for congestion Cepacol spray, cough drops, throat lozenges, warm tea with honey/lemon, gargle salt water to soothe throat BRAT diet for diarrhea Clear liquids x 24 hours then advance as tolerated for nausea/vomiting Go to the ED if you develop a worsening in your condition- high fever not controlled by Tylenol or Motrin, dehydration, weakness, lethargy, shortness of breath, or chest pain. Follow up with your PCP in 3-5 days if symptoms persist. Patient Language: Colombian Prescriptions: New prednisone 20 mg tablet 40 mg PO DAILY 5 Days Qty: 10 0RF No Action prednisone 20 mg tablet 20 mg PO BID Qty: 10 0RF losartan 50 mg tablet 50 mg PO DAILY atorvastatin 10 mg tablet 10 mg PO DAILY alprazolam 1 mg tablet 1 mg PO PRN PRN (Reason: Anxiety) tramadol 50 mg tablet 50 mg PO PRN PRN (Reason: Pain) omeprazole 20 mg capsule,delayed release(DR/EC) 40 mg PO DAILY allopurinol 300 mg tablet 300 mg PO DAILY testosterone cypionate 200 mg/mL oil 200 mg IM MONTHLY Myrbetriq 25 mg tablet extended release 24 hr 25 mg PO DAILY calcium polycarbophil [FiberCon] 625 mg Tablet 1,250 mg PO DAILY Follow-up/Referrals: UNKNOWN,DOCTOR [Non-Staff] - Time of Disposition: 12:11 Quality NIHSS Nursing Documentation ED NIHSS nursing documentation: reviewed/agree
[2024-07-20 12:19] LABS: EDCOVIDSCREEN Negative (Negative); EDINFLUASCREEN Negative (Negative); EDINFLUBSCREEN Negative (Negative)
== END 2024-07-20 12:15 | disposition home or self-care (01) ==
PROVIDERS: Emergency Provider Nurse Practitioner Family
DX: J06.9 Acute upper respiratory infection, unspecified (principal); Z20.822 Contact with and (suspected) exposure to COVID-19; I10 Essential (primary) hypertension; E78.5 Hyperlipidemia, unspecified; G47.33 Obstructive sleep apnea (adult) (pediatric); K21.9 Gastro-esophageal reflux disease without esophagitis; M10.9 Gout, unspecified
CPT/HCPCS: 87426; 87804; 99213; G0463